=== PATIENT | male | born 1990 | race African-American/Black ===

== ENCOUNTER 2017-07-22 00:31 | Emergency (ER) | payer OTHER, BC ==
[~2017-07-22] VITALS: Ht 182.9 cm; Wt 71.4 kg
[~2017-07-22 00:31] MED LIST: BENTYL10 MG PO; COLACE100 MG PO; MOTRIN600 MG PO; MOTRIN800 MG PO; NAPROSYN500 MG PO; NORCO 5/3251 TABLET PO; OXCARBAZEPINE150 MG PO; OXCARBAZEPINE300 MG PO; TYLENOL WITH C1 EACH PO; ZITHROMAX Z-PA250 MG PO
[2017-07-22 03:25] VITALS: BP 122/90
== END 2017-07-22 04:00 | disposition home or self-care (01) ==
LOC: EME 00:31
DX: S20.211A Contusion of right front wall of thorax, initial encounter (principal); W22.8XXA Striking against or struck by other objects, initial encounter; Y99.0 Civilian activity done for income or pay
CPT/HCPCS: 71020; 99281; 99283